=== PATIENT | male | born 1955 | race Caucasian/White ===

== ENCOUNTER 2020-04-24 20:13 | Inpatient (IN) | payer MEDICARE, OTHER ==
[~2020-04-24] VITALS: Ht 177.8 cm; Wt 72.3 kg
[2020-04-24] MEDS ORDERED: Z GUARD REMEDY PASTE 57 GM TUBE TOP PRN ×2 (20:30→23:45)
[2020-04-24 21:09] VITALS: BP 166/85
[2020-04-24] MEDS ORDERED: MULT-1077 PO (21:09)
[2020-04-24] MEDS ORDERED: DOCU-141 PO (21:09)
[2020-04-24] MEDS ORDERED: AMLO5TAB4 PO (21:09)
[2020-04-24] MEDS ORDERED: THIA100P12 PO (21:09)
[2020-04-24] MEDS ORDERED: SERT50TA PO (21:09)
[2020-04-24] MEDS ORDERED: ZINC1CAP2 PO (21:09)
[2020-04-24] MEDS ORDERED: ASCO-375 PO (21:09)
[2020-04-24] MEDS ORDERED: ASCO-310 PO (21:09)
[2020-04-24] MEDS ORDERED: ATOR40TA PO (21:09)
[2020-04-24] MEDS ORDERED: QUET100T PO (21:09)
[2020-04-24] MEDS ORDERED: ONDANSETRON 4 MG/2 ML VIAL IV PRN (23:45)
[2020-04-24] MEDS ORDERED: MAGNESIUM HYDROXIDE 30 ML LIQUID UDC PO PRN (23:45)
[2020-04-24] MEDS ORDERED: QUETIAPINE FUMARATE 25 MG TABLET PO PRN (23:45)
[2020-04-24] MEDS ORDERED: ASCORBIC ACID 500 MG TABLET PO SCH (23:45)
--- NOTE | 2020-04-24 23:45 | NUR ---
Admitted patient from [facility] under care of Dr. Hayden. Patient arrived @194 via gurney. AAO X 2-3 but very confused. Vital signs: BP:166/85, HR:75, RR:19, T:98.7 F, O2 SAT:99% RA. Condition fair. No acute distress or SOB was noted. Admitting diagnosis: Subdural hematoma S/P Fall. On room air. Contacted Dr. Hayden regarding medication reconciliation and it's done. MRSA done and sent to the lab. Physical assessment done. Skin assessed, a lot of skin abrasion in body noted, picture taken and put in the chart, some of the dressing changed. All admission works done. Safety measures maintained. Fall prevention maintained. Bed in lock position, Side rails up x2 for safety. Continue to monitor.
[2020-04-25] MEDS: LORAZEPAM 0.5 MG TABLET PO PRN (00:47)
--- NOTE | 2020-04-25 04:16 | NUR ---
Patient was very agitated, tried out of the bed all the times. Changed his room from 301 to 311 (in front of nursing station) for close monitoring. Ativan 0.5 mg tab administered with minimal effect. Setting bed alarm on and sitting next to the door for close monitoring. continue to monitor.
[2020-04-25 05:00] VITALS: BP 164/93
--- NOTE | 2020-04-25 05:49 | NUR ---
Patient had vomiting, it was projectile, no bloody. Patient was not nauseous before. And after vomiting he did feel better and not nauseous, mentioned "The taste of apple sauce made me vomit". Contacted [employer], received order of KUB, stat from Dr. Hayden. Will endorse to oncoming nurse.
[2020-04-25 06:52] LABS: BASOPHILS % (AUTO) 0.4 % (0.0-2.0); EOSINOPHILS % (AUTO) 0.2 % (0.0-7.0); HEMOGLOBIN 11.6 g/dL (12.5-16.3); LYMPHOCYTES # (AUTO) 0.6 K/uL (20.0-40.0); LYMPHOCYTES % (AUTO) 8.8 % (20.5-51.5); MEAN CORPUSCULAR HEMOGLOBIN 35.2 uug (23.8-33.4); MEAN CORPUSCULAR HGB CONC 35 g/dL (32.5-36.3); MEAN CORPUSCULAR VOLUME 99.7 fL (73.0-96.2); MONOCYTES # (AUTO) 1.1 K/uL (2.0-10.0); MONOCYTES % (AUTO) 16.8 % (0.0-11.0); NEUTROPHILS # (AUTO) 4.7 K/uL (1.8-8.9); NEUTROPHILS % (AUTO) 73.8 % (38.5-71.5); PLATELET COUNT (AUTO) 139 K/uL (152-348); RED BLOOD CELL COUNT(AUTO) 3.31 MIL/uL (4.06-5.63); WHITE BLOOD COUNT (AUTO) 6.4 K/uL (3.6-10.2)
[2020-04-25 07:09] LABS: CREATININE 0.7 mg/dL (0.6-1.3); MAGNESIUM 1.9 mg/dL (1.8-2.4); PHOSPHOROUS 2.8 mg/dL (2.5-4.9); POTASSIUM 2.9 mmol/L (3.5-5.1)
[2020-04-25 08:00] VITALS: BP 179/97
[2020-04-25] MEDS: MULTIVIT, IRON, MIN NO. 8, FA TABLET PO SCH (08:40)
[2020-04-25] MEDS: DOCUSATE SODIUM 100 MG CAPSULE PO SCH ×2 (08:40→17:20)
[2020-04-25] MEDS: THIAMINE HCL 100 MG TABLET PO SCH (08:41)
[2020-04-25] MEDS: ACETAMINOPHEN 325 MG TABLET PO PRN ×2 (08:43→15:40)
[2020-04-25] MEDS: SERTRALINE HCL 50 MG TABLET PO SCH (08:43)
[2020-04-25] MEDS: AMLODIPINE 5 MG TABLET PO SCH (08:43)
[2020-04-25] MEDS: ZINC SULFATE 220 MG CAPSULE PO SCH (08:44)
[2020-04-25] MEDS: QUETIAPINE FUMARATE 100 MG TABLET PO SCH ×2 (08:44→17:21)
[2020-04-25] MEDS ORDERED: ASCORBIC ACID 500 MG TABLET PO SCH ×3 (09:00→10:00)
[2020-04-25] MEDS: ASCORBIC ACID 500 MG TABLET PO SCH (11:47)
[2020-04-25] MEDS: POTASSIUM CHLORIDE 20 MEQ TAB.PRT.SR PO SCH ×3 (13:11→14:45)
--- NOTE | 2020-04-25 13:33 | NUR ---
Received patient awake in bed in stable condition. AOx2-3 with periods of confusion. Patient refuse breakfast and lunch despite of encouragement and education. MD notified. Patient potassium 2.9 replace potassium 20meq x3 tablets. Patient evaluated by therapy this day. Patient on fall risk precaution. Bed alarm on. no vomiting episode. Patient BP 179/97. Morning BP medication given. MD Walker aware. Latest BP-158/81. no complaint of pain/discomfort. not in distress. will continue monitor
[2020-04-25 16:00] VITALS: BP 154/85
--- NOTE | 2020-04-25 17:53 | NUR ---
Patient refuse to consume meals despite of encouragement. MD Walker notified.
[2020-04-25] MEDS ORDERED: IV D5W-0.45% NS 1000 ML BAG IV ONE (18:30)
--- NOTE | 2020-04-25 18:37 | NUR ---
Patient started IV D5 1/2 NS, 50cc/hr for hydration and loss of appetite as ordered by MD Walker. will continue monitor
[2020-04-25] MEDS ORDERED: IV D5 1/2 NS 1000 ML 1,000 ML IV ONE ×2 (18:45)
[2020-04-25 20:06] VITALS: BP 146/82
[2020-04-25] MEDS: ATORVASTATIN 40 MG TABLET PO SCH (20:47)
[2020-04-25 20:52] LABS: EOSINOPHILS % (MANUAL) 1 % (0-8); LYMPHOCYTES % (MANUAL) 9 % (20-40); MONOCYTES % (MANUAL) 11 % (2-10); NEUTROPHILS % (MANUAL) 79 % (42-75)
--- NOTE | 2020-04-25 22:00 | NUR ---
Received patient in bed, intermittently asleep. Alert and verbally responsive. Can make needs known. No complaints of pain noted. Received due medication, tolerated well. Will continue to observe fall and safety precautions. All needs attended.
[2020-04-25] MEDS: ZOLPIDEM 5 MG TABLET PO PRN (23:00)
[2020-04-26] MEDS: LORAZEPAM 0.5 MG TABLET PO PRN (00:58)
[2020-04-26 04:06] VITALS: BP 146/79
[2020-04-26] MEDS: HYDROCODONE/APAP 5-325MG TABLET PO PRN (04:20)
--- NOTE | 2020-04-26 06:48 | NUR ---
Patient is in bed, intermittently asleep. Patient had difficulty sleeping and restless since 0300 until 0430. Patient with ongoing IV hydration, midline at right upper arm patent and intact. Fall and safety precautions observed. Will endorse to AM shift accordingly. All needs attended.
[2020-04-26 08:00] VITALS: BP 174/85
[2020-04-26] MEDS: QUETIAPINE FUMARATE 100 MG TABLET PO SCH ×2 (09:17→17:08)
[2020-04-26] MEDS: DOCUSATE SODIUM 100 MG CAPSULE PO SCH ×2 (09:17→17:08)
[2020-04-26] MEDS: SERTRALINE HCL 50 MG TABLET PO SCH (09:18)
[2020-04-26] MEDS: ASCORBIC ACID 500 MG TABLET PO SCH (09:18)
[2020-04-26] MEDS: MULTIVIT, IRON, MIN NO. 8, FA TABLET PO SCH (09:18)
[2020-04-26] MEDS: THIAMINE HCL 100 MG TABLET PO SCH (09:19)
[2020-04-26] MEDS: ZINC SULFATE 220 MG CAPSULE PO SCH (09:19)
[2020-04-26] MEDS: AMLODIPINE 5 MG TABLET PO SCH (09:25)
[2020-04-26 09:55] LABS: CREATININE 0.7 mg/dL (0.6-1.3); POTASSIUM 3.3 mmol/L (3.5-5.1)
[2020-04-26 10:19] VITALS: BP 149/73
[2020-04-26] MEDS ORDERED: POTASSIUM CHLORIDE 20 MEQ TAB.PRT.SR PO ONE (11:15)
[2020-04-26 16:14] VITALS: BP 133/68
--- NOTE | 2020-04-26 18:32 | NUR ---
patient is alert, awake, ambulatory with assist, however noted with poor appetite, multiple bruises and abrasions noted on body, however they are healing at various stages, asked patient what happen, patient stated he was drunk and fell multiple times, no signs and symptoms of infection noted, patient has poor appetite, not eating much, convinced to eat and offered different choices of food, patient stated he does not feel hungry, continue to monitor, no distress noted, ambulatory with assist, assisted to the bathroom, OT assisted with personal hygiene. needs attended on time.
--- NOTE | 2020-04-26 19:30 | NUR ---
RECEIVED PT AWAKE, ALERT, ORIENTEDX3. PT IN NO ACUTE DISTRESS. PT HAD MULTIPLE SKIN ISSUES. SAFETY AND COMFORT PROVIDED. WILL CONTINUE TO MONITOR.
[2020-04-26] MEDS: ATORVASTATIN 40 MG TABLET PO SCH (20:38)
[2020-04-26 20:56] VITALS: BP 148/70
[2020-04-27 04:51] VITALS: BP 150/77
[2020-04-27] MEDS: HYDROCODONE/APAP 5-325MG TABLET PO PRN (06:09)
--- NOTE | 2020-04-27 06:32 | NUR ---
RECEIVED PT IN NO ACUTE DISTRESS. PRESCRIBED MEDICATION GIVEN AND PT TOLERATED IT WELL. NORCO GIVEN PRN FOR PAIN. PT TOLERATED IT WELL. ENDORSE TO INCOMING NURSE FOR CONTINUITY OF CARE.
[2020-04-27 06:49] VITALS: BP 146/98
[2020-04-27 06:52] LABS: CREATININE 0.8 mg/dL (0.6-1.3); MAGNESIUM 1.9 mg/dL (1.8-2.4); PHOSPHOROUS 3.1 mg/dL (2.5-4.9); POTASSIUM 3.1 mmol/L (3.5-5.1); URIC ACID 2.1 mg/dL (3.5-7.2)
[2020-04-27 07:00] LABS: THYROID STIMULATING HORMONE 2.392 mIU/mL (0.358-3.740)
[2020-04-27] MEDS ORDERED: POTASSIUM CHLORIDE 20 MEQ TAB.PRT.SR PO ONE (07:45)
[2020-04-27] MEDS: MULTIVIT, IRON, MIN NO. 8, FA TABLET PO SCH (09:02)
[2020-04-27] MEDS: AMLODIPINE 5 MG TABLET PO SCH (09:02)
[2020-04-27] MEDS: ASCORBIC ACID 500 MG TABLET PO SCH (09:02)
[2020-04-27] MEDS: SERTRALINE HCL 50 MG TABLET PO SCH (09:02)
[2020-04-27] MEDS: THIAMINE HCL 100 MG TABLET PO SCH (09:02)
[2020-04-27] MEDS: QUETIAPINE FUMARATE 100 MG TABLET PO SCH ×2 (09:02→17:04)
[2020-04-27] MEDS: DOCUSATE SODIUM 100 MG CAPSULE PO SCH ×2 (09:02→17:04)
[2020-04-27] MEDS: ACETAMINOPHEN 325 MG TABLET PO PRN (09:03)
[2020-04-27] MEDS: ZINC SULFATE 220 MG CAPSULE PO SCH (09:03)
[2020-04-27 09:10] VITALS: BP 154/84
[2020-04-27] MEDS: CLONIDINE-TTS 1 PATCH TD SCH (09:29)
--- NOTE | 2020-04-27 12:43 | NUR ---
Received patient awake in bed in stable condition. Patient continue therapy for increase strenght and ADL activities. Patient consumed 50% of meals during lunch time. Encourage increase fluid intake. not in distress. Patient seen and examined by MD Walker with ordered potassium 40 meq for potassium 3.1 low result. Patient compliant wit medication. Continue wound skin care provided. will continue monitor
--- NOTE | 2020-04-27 12:57 | NUR ---
INDIVIDUALIZED PLAN OF CARE
--- NOTE | 2020-04-27 13:37 | NUR ---
WOUND CARE CONSULT: PT PRESENTS WITH MULTIPLE AREAS OF DISCOLORATION AND DRY ABRASIONS, PRESENT ON ADMISSION. THERE ARE DISCOLORED AREAS TO TOES AND WOUND TO RT LATERAL ANKLE, PRESENT ON ADMISSION. RECOMMEND DPM CONSULT. DR VILLATORO NOTIFIED OF CONSULT REQUEST. RECOMMENDATIONS MADE FOR SKIN PROTECTION. DISCUSSED WITH NURSING STAFF. WILL SEE PRN. MCMAHON IN AGREEMENT WITH PLAN OF CARE. Addendum: 04/27/20 at 1339 by JEAN VAZQUEZ RN Amended: Links added.
--- NOTE | 2020-04-27 14:41 | NUR ---
Patient seen and examined by personal vehicle advisor with order, apply xeroform and cover with mepilex in right ankle abrasion. Patient seen and examined by wound care nurse with order continue skin care and refer to personal vehicle advisor for toes and foot abrasion. dry and healing well. will continue monitor
[2020-04-27 16:15] VITALS: BP 149/86
--- NOTE | 2020-04-27 17:15 | NUR ---
Patient seen and examined by MD Hernandez (neuro), ordered psychiatrist consult for ff up psych medications. Patient rare communicate with staff. Patient participate less in therapy noted despite of encouragement.
[2020-04-27 20:22] VITALS: BP 161/77
--- NOTE | 2020-04-27 21:30 | NUR ---
Received patient in bed, intermittently asleep. Alert and verbally responsive. Axox2-3, confused. Can make needs known. No complaints of pain noted. No s/s of distress and no SOB noted. Received due medication, tolerated well. Will continue to observe fall and safety precautions. All needs attended.
[2020-04-27] MEDS: ATORVASTATIN 40 MG TABLET PO SCH (21:36)
[2020-04-27] MEDS: MIRTAZAPINE 15 MG TABLET PO SCH (21:36)
--- NOTE | 2020-04-28 06:05 | NUR ---
Patient is in bed, intermittently asleep. Patient woke up multiple times throughout the night. Episodes of confusion noted, reoriented to time and place. no s/s of distress noted. All needs attended to through the night. Kept comfortable. Fall and safety precautions observed. Will endorse to AM shift accordingly, continue plan of care.
[2020-04-28 06:53] VITALS: BP 145/107
[2020-04-28] MEDS: LORAZEPAM 0.5 MG TABLET PO PRN ×2 (07:45→18:26)
[2020-04-28 08:00] VITALS: BP 106/76
[2020-04-28] MEDS: MULTIVIT, IRON, MIN NO. 8, FA TABLET PO SCH (08:03)
[2020-04-28] MEDS: THIAMINE HCL 100 MG TABLET PO SCH (08:03)
[2020-04-28] MEDS: ASCORBIC ACID 500 MG TABLET PO SCH (08:03)
[2020-04-28] MEDS: AMLODIPINE 5 MG TABLET PO SCH (08:03)
[2020-04-28] MEDS: ZINC SULFATE 220 MG CAPSULE PO SCH (08:03)
[2020-04-28] MEDS: DOCUSATE SODIUM 100 MG CAPSULE PO SCH ×2 (08:04→16:43)
[2020-04-28] MEDS: QUETIAPINE FUMARATE 100 MG TABLET PO SCH ×2 (08:04→16:43)
[2020-04-28] MEDS: SERTRALINE HCL 50 MG TABLET PO SCH (08:04)
--- NOTE | 2020-04-28 09:38 | NUR ---
Received patient awake in bed. Patient confuse and anxious noted. Bowel movement on the floor noted. Bed alarm on, Patient keep on standing going back and fort from bed to bathroom. Patient verbalize, "we already have 5 families in the house" Reorient the patient that he is in the hospital. 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 Patient reorient but still anxious and murmur words at times. Patient complaint of difficulty breathing, not in distress noted. SA02- 100%. Patient Ativan 0.5mg PO PRN given for anxiety. Patient for FF UP psych consult. will continue monitor
--- NOTE | 2020-04-28 11:16 | NUR ---
Patient seen and examined by MD Hernandez. ordered EEG for subdural hematoma. Patient for FF UP psych consult. MD Romo notified this morning. Patient continue behavioral monitoring. Patient participated with therapy, walk with therapy noted. tolerated well. need assistance in ambulation for unsteady gait. will continue monitor
[2020-04-28 15:38] LABS: BASOPHILS % (AUTO) 0.2 % (0.0-2.0); HEMATOCRIT 37.3 % (36.7-47.1); HEMOGLOBIN 13.1 g/dL (12.5-16.3); LYMPHOCYTES # (AUTO) 0.6 K/uL (20.0-40.0); LYMPHOCYTES % (AUTO) 6.4 % (20.5-51.5); MEAN CORPUSCULAR HEMOGLOBIN 34.6 uug (23.8-33.4); MEAN CORPUSCULAR HGB CONC 35 g/dL (32.5-36.3); MEAN CORPUSCULAR VOLUME 98.5 fL (73.0-96.2); MONOCYTES # (AUTO) 2.5 K/uL (2.0-10.0); MONOCYTES % (AUTO) 25.4 % (0.0-11.0); NEUTROPHILS # (AUTO) 6.7 K/uL (1.8-8.9); PLATELET COUNT (AUTO) 235 K/uL (152-348); RED BLOOD CELL COUNT(AUTO) 3.78 MIL/uL (4.06-5.63); WHITE BLOOD COUNT (AUTO) 9.8 K/uL (3.6-10.2)
[2020-04-28 15:44] LABS: BILIRUBIN,TOTAL 3.9 mg/dL (0.2-1.0); CREATININE 1.1 mg/dL (0.6-1.3); MAGNESIUM 1.8 mg/dL (1.8-2.4); PHOSPHOROUS 2.9 mg/dL (2.5-4.9); TOTAL PROTEIN, SERUM 7.8 g/dL (6.4-8.2)
[2020-04-28 15:46] LABS: POTASSIUM 2.8 mmol/L (3.5-5.1)
[2020-04-28 15:51] VITALS: BP 142/80
[2020-04-28] MEDS: ENSURE ENLIVE (VAN) 240 ML LIQUID PO SCH (16:44)
--- NOTE | 2020-04-28 18:03 | NUR ---
Patient done with EEG, awaiting for result. Patient potassium 2.8 low result relayed to MD Walker, ordered Potassium 20meq PO every 2 hours x 3 tabs total of 60meq. not in distress. will continue monitor
[2020-04-28] MEDS: POTASSIUM CHLORIDE 20 MEQ TAB.PRT.SR PO SCH ×3 (18:12→22:23)
[2020-04-28 18:51] LABS: EOSINOPHILS % (MANUAL) 1 % (0-8); MONOCYTES % (MANUAL) 16 % (2-10); NEUTROPHILS % (MANUAL) 68 % (42-75)
[2020-04-28 18:52] LABS: BAND % (MANUAL) 5 % (0-10); LYMPHOCYTES % (MANUAL) 10 % (20-40)
[2020-04-28 20:00] VITALS: BP 141/69
[2020-04-28] MEDS: ATORVASTATIN 40 MG TABLET PO SCH (20:04)
[2020-04-28] MEDS: MIRTAZAPINE 15 MG TABLET PO SCH (20:04)
--- NOTE | 2020-04-28 21:00 | NUR ---
Patient is in bed, intermittently asleep. Episodes of confusion noted, reoriented to place, delay in responses noted. no s/s of distress noted. All needs attended to promptly. All due medication administered and tolerated well. Potassium 20meq PO given. not in distress. Will continue to monitor. Kept comfortable. Fall and safety precautions observed.
[2020-04-29] MEDS: ZOLPIDEM 5 MG TABLET PO PRN (01:50)
[2020-04-29 04:00] VITALS: BP 157/83
--- NOTE | 2020-04-29 06:21 | NUR ---
Patient verbalized having difficult falling asleep, administered Ambien per patient request. Insomnia was not corrected. Patient got up multiple times throughout the night. Patient is very confused need constant reorientation. Falls commands after multiple repetition attempts. no s/s of distress noted. All needs attended to through the night. Kept comfortable. Fall and safety precautions observed. Will endorse to AM shift accordingly, continue plan of care.
[2020-04-29 06:46] LABS: BILIRUBIN,TOTAL 3.1 mg/dL (0.2-1.0); CREATININE 0.9 mg/dL (0.6-1.3); MAGNESIUM 1.9 mg/dL (1.8-2.4); PHOSPHOROUS 3.2 mg/dL (2.5-4.9); POTASSIUM 3.2 mmol/L (3.5-5.1)
[2020-04-29 07:34] LABS: BASOPHILS % (AUTO) 0.2 % (0.0-2.0); EOSINOPHILS % (AUTO) 0.1 % (0.0-7.0); HEMATOCRIT 36.3 % (36.7-47.1); HEMOGLOBIN 12.8 g/dL (12.5-16.3); LYMPHOCYTES # (AUTO) 0.7 K/uL (20.0-40.0); LYMPHOCYTES % (AUTO) 6.4 % (20.5-51.5); MEAN CORPUSCULAR HEMOGLOBIN 34.6 uug (23.8-33.4); MEAN CORPUSCULAR HGB CONC 35 g/dL (32.5-36.3); MEAN CORPUSCULAR VOLUME 97.8 fL (73.0-96.2); MONOCYTES # (AUTO) 2.4 K/uL (2.0-10.0); MONOCYTES % (AUTO) 20.6 % (0.0-11.0); NEUTROPHILS # (AUTO) 8.3 K/uL (1.8-8.9); NEUTROPHILS % (AUTO) 72.7 % (38.5-71.5); PLATELET COUNT (AUTO) 150 K/uL (152-348); RED BLOOD CELL COUNT(AUTO) 3.71 MIL/uL (4.06-5.63); WHITE BLOOD COUNT (AUTO) 11.4 K/uL (3.6-10.2)
[2020-04-29 08:13] LABS: THYROID STIMULATING HORMONE 1.555 mIU/mL (0.358-3.740)
[2020-04-29 08:38] VITALS: BP 158/80
[2020-04-29] MEDS: ZINC SULFATE 220 MG CAPSULE PO SCH (09:22)
[2020-04-29] MEDS: SERTRALINE HCL 50 MG TABLET PO SCH (09:23)
[2020-04-29] MEDS: DOCUSATE SODIUM 100 MG CAPSULE PO SCH ×2 (09:23→18:34)
[2020-04-29] MEDS: AMLODIPINE 5 MG TABLET PO SCH (09:23)
[2020-04-29] MEDS: ASCORBIC ACID 500 MG TABLET PO SCH (09:24)
[2020-04-29] MEDS: THIAMINE HCL 100 MG TABLET PO SCH (09:24)
[2020-04-29] MEDS: ENSURE ENLIVE (VAN) 240 ML LIQUID PO SCH ×3 (09:24→18:34)
[2020-04-29] MEDS: MULTIVIT, IRON, MIN NO. 8, FA TABLET PO SCH (09:24)
[2020-04-29] MEDS: QUETIAPINE FUMARATE 100 MG TABLET PO SCH ×2 (09:25→18:34)
[2020-04-29] MEDS ORDERED: POTASSIUM CHLORIDE 20 MEQ TAB.PRT.SR PO ONE (12:00)
[2020-04-29 13:00] LABS: NEUTROPHILS % (MANUAL) 73 % (42-75)
[2020-04-29 13:01] LABS: REACTIVE LYMPHOCYTES 10 % (0-0)
[2020-04-29 13:02] LABS: LYMPHOCYTES % (MANUAL) 6 % (20-40); MONOCYTES % (MANUAL) 11 % (2-10)
--- NOTE | 2020-04-29 16:16 | NUR ---
MD OCONNELL NOTIFIED FOR PSYCH CONSULT D/T ALTERED MENTAL STATUS REQUESTED BY MD RAMIREZ
--- NOTE | 2020-04-29 16:17 | NUR ---
MOTEL OPERATOR IN RECOMMENDS ATB THERAPY FOR LEFT ANKLE SWELLING AND REDNESS. NOTIFIED PMD OF HER SUGGESTIONS
[2020-04-29 16:47] VITALS: BP 155/78
--- NOTE | 2020-04-29 19:50 | NUR ---
Sleeping during initial rounds. No s/s of pain or discomforts noted. No s/s of respiratory distress. Safety measures and fall prevention maintained. Continue care as planned.
[2020-04-29 20:01] VITALS: BP 134/56
[2020-04-29] MEDS: ATORVASTATIN 40 MG TABLET PO SCH (21:00)
[2020-04-29] MEDS: MIRTAZAPINE 15 MG TABLET PO SCH (21:01)
[2020-04-30 04:46] VITALS: BP 141/75
--- NOTE | 2020-04-30 06:27 | NUR ---
Shift End report: Slept well. No complaint presented all night. No fall/injury. All needs attended and met. No significant event reported. VS stable. Continue current rehab plan of care.
[2020-04-30 06:42] LABS: CREATININE 0.8 mg/dL (0.6-1.3); PHOSPHOROUS 3.1 mg/dL (2.5-4.9); POTASSIUM 3.1 mmol/L (3.5-5.1); URIC ACID 2.7 mg/dL (3.5-7.2)
[2020-04-30 07:30] VITALS: BP 158/66
[2020-04-30] MEDS: ASCORBIC ACID 500 MG TABLET PO SCH (09:15)
[2020-04-30] MEDS: THIAMINE HCL 100 MG TABLET PO SCH (09:15)
[2020-04-30] MEDS: AMLODIPINE 5 MG TABLET PO SCH (09:15)
[2020-04-30] MEDS: QUETIAPINE FUMARATE 100 MG TABLET PO SCH ×2 (09:15→16:44)
[2020-04-30] MEDS: ZINC SULFATE 220 MG CAPSULE PO SCH (09:15)
[2020-04-30] MEDS: MULTIVIT, IRON, MIN NO. 8, FA TABLET PO SCH (09:15)
[2020-04-30] MEDS: SERTRALINE HCL 50 MG TABLET PO SCH (09:16)
[2020-04-30] MEDS: ENSURE ENLIVE (VAN) 240 ML LIQUID PO SCH ×3 (09:17→17:30)
[2020-04-30] MEDS: DOCUSATE SODIUM 100 MG/10 ML LIQUID UDC PO SCH ×2 (09:34→16:44)
[2020-04-30] MEDS ORDERED: POTASSIUM CHLORIDE 20 MEQ TAB.PRT.SR PO ONE (15:45)
[2020-04-30] MEDS ORDERED: POTASSIUM CHLORIDE 20 MEQ POWDER PACKET PO ONE (16:30)
--- NOTE | 2020-04-30 18:00 | NUR ---
Patient awake, oriented to self, confused, not in any form of distress, on room air. Due medications administered and tolerated well. Needs attended to promptly and met. Assisted patient with feeding. Call light and frequently used items placed within patient's reach. Safety measures maintained. Will endorse accordingly.
--- NOTE | 2020-04-30 19:45 | NUR ---
Awake, alert, non verbal at this time but follows simple command. No s/s of respiratory distress. No s/s of pain/discomforts noted. Safety measures and fall prevention maintained. Continue care as planned.
[2020-04-30 20:12] VITALS: BP 117/65
[2020-04-30] MEDS: MIRTAZAPINE 15 MG TABLET PO SCH (20:38)
[2020-04-30] MEDS: ATORVASTATIN 40 MG TABLET PO SCH (20:38)
--- NOTE | 2020-04-30 22:00 | NUR ---
Dr. Romo here, informed him about the consult, he said he'll see tomorrow. Charge Nurse aware.
[2020-05-01 04:00] VITALS: BP 131/65
--- NOTE | 2020-05-01 05:34 | NUR ---
Shift End Report: Slept well. No significant event reported all night. VS stable. Continue current rehab plan of care.
[2020-05-01 08:16] VITALS: BP 124/66
[2020-05-01] MEDS: SERTRALINE HCL 50 MG TABLET PO SCH (09:11)
[2020-05-01] MEDS: QUETIAPINE FUMARATE 100 MG TABLET PO SCH ×3 (09:11→17:20)
[2020-05-01] MEDS: THIAMINE HCL 100 MG TABLET PO SCH (09:11)
[2020-05-01] MEDS: ASCORBIC ACID 500 MG TABLET PO SCH (09:12)
[2020-05-01] MEDS: MULTIVIT, IRON, MIN NO. 8, FA TABLET PO SCH (09:12)
[2020-05-01] MEDS: ZINC SULFATE 220 MG CAPSULE PO SCH (09:12)
[2020-05-01] MEDS: DOCUSATE SODIUM 100 MG/10 ML LIQUID UDC PO SCH ×2 (09:12→17:20)
[2020-05-01] MEDS: ENSURE ENLIVE (VAN) 240 ML LIQUID PO SCH ×3 (09:13→17:21)
[2020-05-01] MEDS: AMLODIPINE 5 MG TABLET PO SCH (09:13)
[2020-05-01] MEDS: SULFAMETH/TRIMETH 800/160 MG TABLET PO SCH ×2 (09:35→21:09)
--- NOTE | 2020-05-01 11:02 | NUR ---
STARTED ON ATB FOR RIGHT ANKLE WOUND, WOUND BED IS YELLOW, PERIWOUND IS RED IN COLOR, NO ODOR NOTED, NO DRAINAGE NOTED, MULTIPLE ABRASIONS ON THE OTHER PART OF THE BODY ARE AT DIFFERENT STAGES OF HEALING. CONTINUE TO MONITOR
--- NOTE | 2020-05-01 15:26 | NUR ---
patient is alert, sleepy most of the time, no distress noted, able to participate with PT, OT, tolerated well, still noted with poor appetite, encouraged to drink ensure, patient drank ensure with meals, offered snacks, stated on new medication, will monitor for effectiveness, needs attended timely.
[2020-05-01 15:34] VITALS: BP 111/59
--- NOTE | 2020-05-01 16:01 | NUR ---
INTERDISCIPLINARY TEAM CONFERENCE
--- NOTE | 2020-05-01 17:10 | NUR ---
Jorgensen catheter discontinued, urine turns from yellow in the morning, now dark color with clots, dr son is aware.
--- NOTE | 2020-05-01 17:14 | NUR ---
clarification: noted yellow color urine draining in the [place] in the morning, later in the day noted with clots and dark color, vitals are good, patient stated he feels cold, and shaky, however rectal temp is 98.4, dr son aware, continue to monitor, no new orders at this time. encouraged patient to drink more water as tolerated.
--- NOTE | 2020-05-01 19:45 | NUR ---
Received patient in bed, awake, alert, requesting assistance to the bathroom. 2 person assist to get him out the bed. Ambulated to the BR with FWW with standby assist. No fall/injury. Voided good. Assisted back to bed. Able to turn and repositioned self slowly in bed. Safety measure and fall prevention maintained. Continue care as planned.
[2020-05-01 20:24] VITALS: BP 125/62
[2020-05-01] MEDS: ATORVASTATIN 40 MG TABLET PO SCH (21:09)
[2020-05-01] MEDS: MIRTAZAPINE 15 MG TABLET PO SCH (21:09)
[2020-05-02 05:27] VITALS: BP 110/71
--- NOTE | 2020-05-02 06:49 | NUR ---
Shift End Report: Slept good. No complaint presented all night. All needs attended and met. No fall/injury. No significant event reported. Continue current rehab plan of care.
[2020-05-02 07:30] VITALS: BP 144/60
[2020-05-02] MEDS: QUETIAPINE FUMARATE 100 MG TABLET PO SCH ×2 (09:03→17:25)
[2020-05-02] MEDS: THIAMINE HCL 100 MG TABLET PO SCH (09:03)
[2020-05-02] MEDS: SERTRALINE HCL 50 MG TABLET PO SCH (09:03)
[2020-05-02] MEDS: MULTIVIT, IRON, MIN NO. 8, FA TABLET PO SCH (09:03)
[2020-05-02] MEDS: AMLODIPINE 5 MG TABLET PO SCH (09:03)
[2020-05-02] MEDS: ASCORBIC ACID 500 MG TABLET PO SCH (09:04)
[2020-05-02] MEDS: DOCUSATE SODIUM 100 MG/10 ML LIQUID UDC PO SCH ×2 (09:04→17:25)
[2020-05-02] MEDS: ZINC SULFATE 220 MG CAPSULE PO SCH (09:04)
[2020-05-02] MEDS: MODAFINIL 100 MG TABLET PO SCH (09:04)
[2020-05-02] MEDS: SULFAMETH/TRIMETH 800/160 MG TABLET PO SCH ×2 (09:04→20:59)
[2020-05-02] MEDS: ENSURE ENLIVE (VAN) 240 ML LIQUID PO SCH ×3 (09:05→17:25)
--- NOTE | 2020-05-02 09:30 | NUR ---
Patient noted with swelling and tenderness on right upper arm where midline is placed. Patient also stated having pain and tenderness when moving. RN cryptologic supervisor informed. Midline on right upper arm removed, no bleeding noted; site covered with gauze and secured. will continue with care.
--- NOTE | 2020-05-02 11:28 | NUR ---
Patient received in bed sleeping, easy to arouse. Patient is AAO X 2-3. NO acute distress noted. Vital signs stable. Due medications administered, crushed with apple sauce and tolerated well. Patient on ATB therapy of Bactrim DS PO q 12hr. Pt. on continuos PT/OT therapy. Denies pain at this time. Able to ambulate with a walker and one person assist. Patient was given shower with PT. All other needs attended, safety measures in place and will continue with care. Addendum: 05/02/20 at 1223 by EMANUEL HARRINGTON RN RN Patient AAO x 2.
--- NOTE | 2020-05-02 14:43 | NUR ---
Right ankle cleansed and changed dressing as ordered.
[2020-05-02 16:00] VITALS: BP 130/72
--- NOTE | 2020-05-02 18:16 | NUR ---
Patient AAO x 2 with episodes of forgetfulness noted, needs reorientation at times. No acute distress. All due medications administered as ordered and scheduled and tolerated well. Patient was up with PT/OT. All other needs attended, safety measures in place, call light left at bed side and will continue with care.
--- NOTE | 2020-05-02 18:48 | NUR ---
Right upper arm dressing intact and dry. Swelling subsided will continue with care.
[2020-05-02 20:02] VITALS: BP 115/64
[2020-05-02] MEDS: ATORVASTATIN 40 MG TABLET PO SCH (20:59)
[2020-05-02] MEDS: MIRTAZAPINE 15 MG TABLET PO SCH (20:59)
--- NOTE | 2020-05-02 21:44 | NUR ---
Resting in bed upon initial rounds. AAOx 2-3 with some periods of forgetfulness at times. Needs attended. Admitted for subdural hematoma secondary to fall. Took meds without difficulty, crushed and mixed with apple sauce. Tolerated well. No nausea or vomiting noted. Kept comfortable. OOB to the BR with walker under supervision. Fluid restriction maintained. Will monitor patient.VSS.
[2020-05-03 06:17] LABS: CREATININE 0.8 mg/dL (0.6-1.3); MAGNESIUM 1.9 mg/dL (1.8-2.4); PHOSPHOROUS 3.5 mg/dL (2.5-4.9); POTASSIUM 3.4 mmol/L (3.5-5.1); URIC ACID 2.4 mg/dL (3.5-7.2)
[2020-05-03 06:29] VITALS: BP 121/60
--- NOTE | 2020-05-03 06:38 | NUR ---
End of shift notes: Slept well throughout the night. OOB to the BR with supervision. Voiding freely. Needs attended. No complaints presented during the shift. Will monitor patient.
[2020-05-03] MEDS: ZINC SULFATE 220 MG CAPSULE PO SCH (09:00)
[2020-05-03] MEDS: SERTRALINE HCL 50 MG TABLET PO SCH (10:03)
[2020-05-03] MEDS: ASCORBIC ACID 500 MG TABLET PO SCH (10:03)
[2020-05-03] MEDS: QUETIAPINE FUMARATE 100 MG TABLET PO SCH ×3 (10:03→18:20)
[2020-05-03] MEDS: THIAMINE HCL 100 MG TABLET PO SCH (10:04)
[2020-05-03] MEDS: MODAFINIL 100 MG TABLET PO SCH (10:04)
[2020-05-03] MEDS: MULTIVIT, IRON, MIN NO. 8, FA TABLET PO SCH (10:04)
[2020-05-03] MEDS: SULFAMETH/TRIMETH 800/160 MG TABLET PO SCH ×2 (10:04→21:14)
[2020-05-03] MEDS: AMLODIPINE 5 MG TABLET PO SCH (10:04)
[2020-05-03] MEDS: DOCUSATE SODIUM 100 MG/10 ML LIQUID UDC PO SCH ×2 (10:05→18:20)
[2020-05-03] MEDS: ENSURE ENLIVE (VAN) 240 ML LIQUID PO SCH ×3 (10:05→17:00)
[2020-05-03] MEDS ORDERED: POTASSIUM CHLORIDE 20 MEQ TAB.PRT.SR PO ONE (12:00)
[2020-05-03 19:45] VITALS: BP 123/70
[2020-05-03] MEDS: MIRTAZAPINE 15 MG TABLET PO SCH (21:14)
[2020-05-03] MEDS: ATORVASTATIN 40 MG TABLET PO SCH (21:14)
[2020-05-03] MEDS: HYDROCODONE/APAP 5-325MG TABLET PO PRN (23:34)
--- NOTE | 2020-05-04 03:04 | NUR ---
Received patient in bed, AAO x2 with episodes of confusion. No acute distress or SOB was noted. On room air. All due medications administered and well tolerated. Fluid restriction applied. reconciliation and it's done. Bladder scan done after voiding showing 42 ml. Diaper changed and kept patient clean and dry. Physical assessment done. Skin care rendered. All needs attended promptly. Safety measures maintained. Fall prevention maintained. Bed in lock position, Side rails up x2 for safety. Continue to monitor and will endorse to oncoming nurse accordingly.
[2020-05-04 05:24] VITALS: BP 142/76
[2020-05-04] MEDS: CLONIDINE-TTS 1 PATCH TD SCH (08:15)
[2020-05-04] MEDS: AMLODIPINE 5 MG TABLET PO SCH (08:24)
[2020-05-04] MEDS: MODAFINIL 100 MG TABLET PO SCH (08:25)
[2020-05-04] MEDS: SULFAMETH/TRIMETH 800/160 MG TABLET PO SCH ×2 (08:25→20:29)
[2020-05-04] MEDS: THIAMINE HCL 100 MG TABLET PO SCH (08:25)
[2020-05-04] MEDS: MULTIVIT, IRON, MIN NO. 8, FA TABLET PO SCH (08:25)
[2020-05-04] MEDS: ZINC SULFATE 220 MG CAPSULE PO SCH (08:25)
[2020-05-04] MEDS: SERTRALINE HCL 50 MG TABLET PO SCH (08:26)
[2020-05-04] MEDS: QUETIAPINE FUMARATE 100 MG TABLET PO SCH ×2 (08:26→16:35)
[2020-05-04] MEDS: ASCORBIC ACID 500 MG TABLET PO SCH (08:26)
[2020-05-04] MEDS: ENSURE ENLIVE (VAN) 240 ML LIQUID PO SCH ×3 (08:27→16:36)
[2020-05-04] MEDS: DOCUSATE SODIUM 100 MG/10 ML LIQUID UDC PO SCH ×2 (08:29→16:35)
[2020-05-04 10:39] VITALS: BP 97/63
--- NOTE | 2020-05-04 11:16 | NUR ---
Received patient awake in bed in stable condition. Patient continue therapy for increase strenght and therapeutic exercises. tolerated well. Done with shower in therapy gym. no complaint of pain/discomfort. will continue monitor
[2020-05-04 16:28] VITALS: BP 110/62
[2020-05-04] MEDS: HYDROCODONE/APAP 5-325MG TABLET PO PRN (18:14)
--- NOTE | 2020-05-04 18:34 | NUR ---
Patient continue on bladder scan, urine output monitoring with 93ml post void. Pain management given, Hydrocodone 5-325mg for back pain. not in distress. will continue monitor
--- NOTE | 2020-05-04 18:38 | NUR ---
Patient 700ml fluid intake. tolerated well.
[2020-05-04] MEDS: ATORVASTATIN 40 MG TABLET PO SCH (20:29)
[2020-05-04] MEDS: MIRTAZAPINE 15 MG TABLET PO SCH (20:29)
[2020-05-04 20:44] VITALS: BP 128/67
--- NOTE | 2020-05-04 20:47 | NUR ---
Received pt resting in bed and watching tv. AAO x3. No acute distress noted. Denies pain/ discomfort. Due meds given as ordered, given one at a time, tolerated well. On 1,000 mL/ day fluid restriction, monitored well. Pt on monitoring for bladder scan after voiding. Post void 6 mL. Safety measures maintained. Call light and personal items within reach. Will continue to monitor.
--- NOTE | 2020-05-05 00:26 | NUR ---
Post void 10mL. Continue to monitor.
[2020-05-05 04:42] VITALS: BP 112/63
--- NOTE | 2020-05-05 05:22 | NUR ---
Bladder scan done, post void 18mL. Continue to monitor.
[2020-05-05 07:30] VITALS: BP 142/73
[2020-05-05] MEDS: SERTRALINE HCL 50 MG TABLET PO SCH (08:13)
[2020-05-05] MEDS: ASCORBIC ACID 500 MG TABLET PO SCH (08:14)
[2020-05-05] MEDS: THIAMINE HCL 100 MG TABLET PO SCH (08:14)
[2020-05-05] MEDS: MULTIVIT, IRON, MIN NO. 8, FA TABLET PO SCH (08:14)
[2020-05-05] MEDS: MODAFINIL 100 MG TABLET PO SCH (08:14)
[2020-05-05] MEDS: SULFAMETH/TRIMETH 800/160 MG TABLET PO SCH ×2 (08:14→20:25)
[2020-05-05] MEDS: ZINC SULFATE 220 MG CAPSULE PO SCH (08:14)
[2020-05-05] MEDS: QUETIAPINE FUMARATE 100 MG TABLET PO SCH ×2 (08:14→16:06)
[2020-05-05] MEDS: ENSURE ENLIVE (VAN) 240 ML LIQUID PO SCH ×3 (08:15→16:06)
[2020-05-05] MEDS: DOCUSATE SODIUM 100 MG/10 ML LIQUID UDC PO SCH ×2 (08:15→16:05)
[2020-05-05] MEDS: AMLODIPINE 5 MG TABLET PO SCH (08:59)
[2020-05-05 16:00] VITALS: BP 129/71
--- NOTE | 2020-05-05 16:15 | NUR ---
bladder scan 105ml
--- NOTE | 2020-05-05 18:12 | NUR ---
dr murillo made aware about psych consult
[2020-05-05] MEDS: LORAZEPAM 0.5 MG TABLET PO PRN (18:59)
--- NOTE | 2020-05-05 19:06 | NUR ---
patient stated he wants to go to store and buy alcohol, reinforced hospital policies, redirected patient, endorsed accordingly to monitor patient closely for safety.
--- NOTE | 2020-05-05 19:23 | NUR ---
Awake, sitting at the edge of the bed. Denies any pain/discomforts. Voided per urinal, clear yellow in moderate amount. Assisted back to bed. Made comfortable. Safety measures and fall prevention maintained. Continue care as planned.
[2020-05-05 20:17] VITALS: BP_SYST 121; BP_SYST 128; BP_DIAS 62; BP_DIAS 73
[2020-05-05] MEDS: ATORVASTATIN 40 MG TABLET PO SCH (20:25)
[2020-05-05] MEDS: MIRTAZAPINE 15 MG TABLET PO SCH (20:25)
--- NOTE | 2020-05-05 21:10 | NUR ---
Voided per urinal 300 ml. No bladder distention noted. Bladder scan performed 21ml noted post void.
--- NOTE | 2020-05-05 21:12 | NUR ---
Patient was seen by Dr. Romo today, wants to order Crisis Team Eval. Dr Hayden made aware and agreeable with the plan. Charge Nurse called Crisis team and will see patient in AM.
--- NOTE | 2020-05-05 22:10 | NUR ---
Got up and attempted to go to the bathroom. Offered urinal for use, voided 400 cc clear denise urine in color. No bladder scan performed. No s/s of bladder retention/distention/discomforts presented at this time. Will monitor.
[2020-05-06 05:07] VITALS: BP 134/74
--- NOTE | 2020-05-06 06:45 | NUR ---
Shift End Report: VS stable. Slept well. No fall/injury. No complaint presented all night. All needs attended and met. No significant event reported. Continue current rehab plan of care.
[2020-05-06 06:59] LABS: BASOPHILS # (AUTO) 0.1 K/uL (0.0-8.0); EOSINOPHILS # (AUTO) 0.1 K/uL (0.0-0.7); HEMOGLOBIN 12.4 g/dL (12.5-16.3); MONOCYTES # (AUTO) 1.3 K/uL (2.0-10.0)
[2020-05-06 07:14] LABS: EOSINOPHILS % (AUTO) 1.1 % (0.0-7.0); HEMATOCRIT 36.4 % (36.7-47.1); LYMPHOCYTES # (AUTO) 1.4 K/uL (20.0-40.0); LYMPHOCYTES % (AUTO) 14.1 % (20.5-51.5); MEAN CORPUSCULAR HEMOGLOBIN 33.5 uug (23.8-33.4); MEAN CORPUSCULAR HGB CONC 34 g/dL (32.5-36.3); MEAN CORPUSCULAR VOLUME 98.1 fL (73.0-96.2); MONOCYTES % (AUTO) 13.7 % (0.0-11.0); NEUTROPHILS # (AUTO) 6.8 K/uL (1.8-8.9); NEUTROPHILS % (AUTO) 70.1 % (38.5-71.5); PLATELET COUNT (AUTO) 513 K/uL (152-348); RED BLOOD CELL COUNT(AUTO) 3.71 MIL/uL (4.06-5.63); WHITE BLOOD COUNT (AUTO) 9.7 K/uL (3.6-10.2)
[2020-05-06 07:17] LABS: CREATININE 0.8 mg/dL (0.6-1.3); POTASSIUM 3.9 mmol/L (3.5-5.1)
[2020-05-06 07:35] VITALS: BP 124/71
[2020-05-06] MEDS: ASCORBIC ACID 500 MG TABLET PO SCH (09:00)
[2020-05-06] MEDS: MULTIVIT, IRON, MIN NO. 8, FA TABLET PO SCH (09:00)
[2020-05-06] MEDS: THIAMINE HCL 100 MG TABLET PO SCH (09:01)
[2020-05-06] MEDS: MODAFINIL 100 MG TABLET PO SCH (09:01)
[2020-05-06] MEDS: SERTRALINE HCL 50 MG TABLET PO SCH (09:01)
[2020-05-06] MEDS: SULFAMETH/TRIMETH 800/160 MG TABLET PO SCH (09:01)
[2020-05-06] MEDS: ZINC SULFATE 220 MG CAPSULE PO SCH (09:01)
[2020-05-06] MEDS: DOCUSATE SODIUM 100 MG/10 ML LIQUID UDC PO SCH ×2 (09:02→16:36)
[2020-05-06] MEDS: AMLODIPINE 5 MG TABLET PO SCH (09:02)
[2020-05-06] MEDS: ENSURE ENLIVE (VAN) 240 ML LIQUID PO SCH ×3 (09:03→16:36)
[2020-05-06] MEDS: QUETIAPINE FUMARATE 100 MG TABLET PO SCH ×2 (09:03→16:36)
--- NOTE | 2020-05-06 10:45 | NUR ---
noted with limited and painful ROM to left shoulder, xray ordered.
--- NOTE | 2020-05-06 14:00 | NUR ---
patient voided in the bathroom, no post voiding residual noted upon scanning.
[2020-05-06 14:55] VITALS: BP 126/65
--- NOTE | 2020-05-06 15:40 | NUR ---
patient is alert, awake,oriented x2, with episodes of confusion and forgetful, however no acute distress noted, ambulatory with fww with one person assist, one person assist with adls, multiple abrasions healing at different stages, no signs and symptoms of infections noted, patient denied hallucinations, denied any suicidal thoughts or ideations, being discharged to [facility], report given to Misbah VEGA, warp picker time 1700 by [facility], belongings accounted and signed, medication recon attached to paperwork, instructions given to patient as well, verbalized understanding of some of it. still with poor appetite, no combative, no aggressive behaviour noted. seeks for alcohol, however easily redirected. kept clean and dry, needs attended timely.
[2020-05-06 18:16] LABS: NEUTROPHILS % (MANUAL) 69 % (42-75)
[2020-05-06 18:17] LABS: BAND % (MANUAL) 1 % (0-10); BASOPHILS % (MANUAL) 0 % (0-2); EOSINOPHILS % (MANUAL) 1 % (0-8); LYMPHOCYTES % (MANUAL) 16 % (20-40); MONOCYTES % (MANUAL) 13 % (2-10)
--- NOTE | 2020-05-06 19:00 | NUR ---
Patient discharged with [facility]. ID band removed
== END 2020-05-06 19:00 | DRG 949 ==
PROVIDERS: ADMIT Physical Medicine & Rehabilitation Pain Medicine; ATTEND Physical Medicine & Rehabilitation Pain Medicine
DX: S06.5X9D Traumatic subdural hemorrhage with loss of consciousness of unspecified duration, subsequent encounter (principal); N17.9 Acute kidney failure, unspecified; F32.3 Major depressive disorder, single episode, severe with psychotic features; E87.1 Hypo-osmolality and hyponatremia; M62.82 Rhabdomyolysis; G93.40 Encephalopathy, unspecified; L03.115 Cellulitis of right lower limb; R29.6 Repeated falls; S02.2XXD Fracture of nasal bones, subsequent encounter for fracture with routine healing; S90.511D Abrasion, right ankle, subsequent encounter; W19.XXXD Unspecified fall, subsequent encounter; D64.9 Anemia, unspecified; I10 Essential (primary) hypertension; R88.8 Abnormal findings in other body fluids and substances; M20.41 Other hammer toe(s) (acquired), right foot; M20.42 Other hammer toe(s) (acquired), left foot; Z91.81 History of falling; Z96.642 Presence of left artificial hip joint; F10.20 Alcohol dependence, uncomplicated; R53.1 Weakness; Z88.8 Allergy status to other drugs, medicaments and biological substances
CPT/HCPCS: 36415; 70030-TC; 70450; 73020; 74018; 83735; 84100; 84300; 84443; 84550; 85025; 86592; 95819; A4663; J2405

== ENCOUNTER 2020-07-09 13:46 | Inpatient (IN) | payer MEDICARE, OTHER ==
[~2020-07-09] VITALS: Ht 175.3 cm; Wt 81.6 kg
[~2020-07-09 13:46] MED LIST: AMLO5TAB4 PO; ASCO-310 PO; ASCO-375 PO; ATOR40TA PO; DOCU-141 PO; MULT-1077 PO; QUET100T PO; SERT50TA PO; THIA100P12 PO; ZINC1CAP2 PO
--- NOTE | 2020-07-09 14:10 | NUR ---
Dr Leon at the bedside for MSE.
[2020-07-09] MEDS ORDERED: MIRT15TA7 PO (14:21)
[2020-07-09 14:31] LABS: BASOPHILS % (AUTO) 0.5 % (0.0-2.0); EOSINOPHILS # (AUTO) 0.6 K/uL (0.0-0.7); EOSINOPHILS % (AUTO) 9.5 % (0.0-7.0); HEMATOCRIT 35.4 % (36.7-47.1); HEMOGLOBIN 11.8 g/dL (12.5-16.3); LYMPHOCYTES # (AUTO) 1.5 K/uL (20.0-40.0); LYMPHOCYTES % (AUTO) 25.3 % (20.5-51.5); MEAN CORPUSCULAR HEMOGLOBIN 29.9 uug (23.8-33.4); MEAN CORPUSCULAR HGB CONC 33 g/dL (32.5-36.3); MONOCYTES # (AUTO) 0.8 K/uL (2.0-10.0); MONOCYTES % (AUTO) 13.4 % (0.0-11.0); NEUTROPHILS # (AUTO) 3.1 K/uL (1.8-8.9); NEUTROPHILS % (AUTO) 51.3 % (38.5-71.5); PLATELET COUNT (AUTO) 230 K/uL (152-348); RED BLOOD CELL COUNT(AUTO) 3.94 MIL/uL (4.06-5.63); WHITE BLOOD COUNT (AUTO) 6.1 K/uL (3.6-10.2)
[2020-07-09 14:37] LABS: CARBON DIOXIDE 28 mmol/L (21-32); CHLORIDE 107 mmol/L (98-107); CREATININE 0.8 mg/dL (0.6-1.3); GLUCOSE 99 mg/dL (74-106); POTASSIUM 3.4 mmol/L (3.5-5.1); UREA NITROGEN, BLOOD 11 mg/dL (7-18)
[2020-07-09 14:38] LABS: ETHANOL < 3 MG/DL (0-0)
[2020-07-09 14:43] LABS: ALANINE AMINOTRANSFERASE 17 U/L (16-63); ALKALINE PHOSPHATASE 59 U/L (50-136); ASPARTATE AMINOTRANSFERASE 12 U/L (15-37); BILIRUBIN,DIRECT 0.1 mg/dL (0.0-0.2); BILIRUBIN,TOTAL 0.4 mg/dL (0.2-1.0); TOTAL PROTEIN, SERUM 7.5 g/dL (6.4-8.2)
[2020-07-09 14:47] LABS: ACETAMINOPHEN < 2.0 ug/mL (10-30)
[2020-07-09 14:51] LABS: THYROID STIMULATING HORMONE 3.959 mIU/mL (0.358-3.740)
--- NOTE | 2020-07-09 15:03 | NUR ---
Patient is resting comfortably in bed with eyes closed, easily arousable,NAD noted.
--- NOTE | 2020-07-09 15:04 | NUR ---
Pt is medically cleared by Dr Leon.
--- NOTE | 2020-07-09 15:21 | NUR ---
Suhail Mckeon LCSW from PET at the bedside for psych eval.
[2020-07-09] MEDS ORDERED: POTASSIUM BICARBONATE/CIT AC 25 MEQ TABLET.EFF PO ONE (16:00)
[2020-07-09] MEDS ORDERED: POTASSIUM BICARBONATE/CIT AC 25 MEQ TABLET.EFF ONE (16:02)
--- NOTE | 2020-07-09 17:34 | NUR ---
Attempted to collect urine w/ urinal, pt urinated on matress accedently.
--- NOTE | 2020-07-09 18:19 | NUR ---
Dinner tray provided, Pt ate 100%, w/ good appetite.
--- NOTE | 2020-07-09 19:18 | NUR ---
Transfered to MHU via wheelchair with no distress noted.
[2020-07-09 19:25] VITALS: BP 127/71
--- NOTE | 2020-07-09 19:40 | NUR ---
GPS ADMISSION NOTE: Patient is a 64 year old male, brought in to the hospital from [facility] on a 5150 for DTS and GD , via ambulance. Patient arrived to the Mental Health unit by wheelchair. Per the hold, patient ran out of [facility], where he was living, in an AWOL attempt and fell down. Hold also states that patient has been noncompliant with his care. Upon face to face evaluation this patient is oriented to self only and is unable to verbalize why he is here. Patient is unkept and incontinent of urine at times. His judgement is impaired as evidenced by him urinating in a small cup at the bedside. Interviewing patient was difficult because patient is a poor historian but was able to express he needs a drink of "Vodka" and that he drinks daily. Basketball Coach oriented patient to environment several times and put safety measures in place d/t patient has an unsteady gait. Patients Rights Handbook and Advisement were provided. VS are stable and DR Garcia, and Dr. Sadler were called for orders. Continuing to monitor for safety, Awol risk , and any behavioral issues. No acute distress noted at this time.
[2020-07-09] MEDS ORDERED: MAG HYDROX/AL HYDROX/SIMETH 30 ML LIQUID UDC PO PRN (21:00)
[2020-07-09] MEDS ORDERED: MAGNESIUM HYDROXIDE 30 ML LIQUID UDC PO PRN (21:00)
[2020-07-09] MEDS: ZOLPIDEM 5 MG TABLET PO PRN (22:54)
[2020-07-10] MEDS: ACETAMINOPHEN 325 MG TABLET PO PRN (00:51)
[2020-07-10] MEDS: LORAZEPAM 0.5 MG TABLET PO PRN (00:51)
[2020-07-10 02:50] LABS: *BILIRUBIN,URIN NEGATIVE (NEGATIVE); *BLOOD, URINE NEGATIVE (NEGATIVE); *CLARITY,URINE CLEAR (CLEAR); *COLOR,URINE LIGHT YELLOW (YELLOW); *KETONES,URINE NEGATIVE (NEGATIVE); *UROBILINOGEN,URINE 0.2 E.U./dl (NORMAL); LEUKOCYTE ESTERASE ,URINE NEGATIVE (NEGATIVE); NITRITE, URINE NEGATIVE (NEGATIVE); PH,URINE 7.5 (5.0-8.0); UGLUCOSE NEGATIVE (NEGATIVE)
[2020-07-10 02:56] LABS: *AMPHETAMINE, URINE NEGATIVE (NEGATIVE); *CANNABINOID, URINE NEGATIVE (NEGATIVE); *COCCAINE, URINE NEGATIVE (NEGATIVE); *OPIATE, URINE NEGATIVE (NEGATIVE); *PHENCYCLIDINE SCREEN,URINE NEGATIVE (NEGATIVE)
--- NOTE | 2020-07-10 05:44 | NUR ---
Patient confused all night. Prn medications given with little to no effect. Total sleep 2 hours. Patient was up out of bed to void frequently. UA sent and came back negative. Constant reorientation provided for this patient along with safety strategies d/t the patient has had recent falls and has an unsteady gait. A few times during the shift patient would ask insurance underwriter sales for some " Vodka". At one point patient believed he was on an airplane. Continuing to monitor for safety , assess and provide for needs. No acute distress at this time.
[2020-07-10 07:30] VITALS: BP 135/73
[2020-07-10] MEDS: AMLODIPINE 5 MG TABLET PO SCH (08:10)
--- NOTE | 2020-07-10 08:32 | NUR ---
Firearms Report: Deputy Juvenile Officer completed and submitted a [employer] firearms report for 5150 grave disability certification. A copy of report has been placed in patient chart.
[2020-07-10 09:23] LABS: IRON, SERUM 59 ug/dL (50-175)
[2020-07-10 09:37] LABS: FERRITIN 269 ng/mL (26-388)
--- NOTE | 2020-07-10 09:55 | NUR ---
SW Family Contact: his handbook writer spoke with pt's son Bridger ([phone]) to gather collateral. Bridger is involved in pt's care. Per Bridger, he stated he would want pt to look into other facilities, however, he stated if no other facility will take him then he can return back to [facility].
--- NOTE | 2020-07-10 09:55 | NUR ---
LAN Initial Discharge Note: Patient currently resides [facility] [address] [place] [address]; ([phone]). This blurb writer spoke with pt's son Bridger ([phone]) to gather collateral. Bridger is involved in pt's care. Per Bridger, he stated he would want pt to look into other facilities, however, he stated if no other facility will take him then he can return back to [facility]. This blurb writer contacted [facility] ([phone]) requesting to speak to an admin, however, this blurb writer left a voicemail. LAN will work with the MD, treatment team, and family to help coordinate discharge.
--- NOTE | 2020-07-10 10:01 | NUR ---
SW Substance Abuse Intervention: Patient was provided with a brief substance abuse intervention and provided resources: [facility] ([phone]), [facility] ([phone]), and [facility] ([phone]).
--- NOTE | 2020-07-10 10:09 | NUR ---
LAN Facility Contact: This underwriter mortgage loan spoke with Walter schaffer from [facility] ([phone]) stated pt is welcomed back upon dc.
[2020-07-10] MEDS: ESCITALOPRAM OXALATE 10 MG TABLET PO SCH (13:48)
[2020-07-10 15:05] VITALS: BP 153/78
[2020-07-10 19:56] VITALS: BP 151/77
[2020-07-10] MEDS ORDERED: QUETIAPINE FUMARATE 100 MG TABLET PO SCH (21:00)
[2020-07-10] MEDS: ATORVASTATIN 40 MG TABLET PO SCH (21:20)
[2020-07-10] MEDS: ZOLPIDEM 5 MG TABLET PO PRN (21:41)
[2020-07-11] MEDS: LORAZEPAM 0.5 MG TABLET PO PRN ×2 (01:03→08:24)
[2020-07-11 07:30] VITALS: BP 140/83
[2020-07-11] MEDS: AMLODIPINE 5 MG TABLET PO SCH (08:24)
[2020-07-11] MEDS: ESCITALOPRAM OXALATE 10 MG TABLET PO SCH (08:25)
[2020-07-11 15:35] VITALS: BP 150/61
[2020-07-11 20:00] VITALS: BP 112/77
[2020-07-11] MEDS: ATORVASTATIN 40 MG TABLET PO SCH (20:34)
[2020-07-11] MEDS: QUETIAPINE FUMARATE 100 MG TABLET PO SCH (20:34)
[2020-07-12] MEDS: LORAZEPAM 0.5 MG TABLET PO PRN ×4 (03:17→20:55)
--- NOTE | 2020-07-12 05:07 | NUR ---
Received patient last night , wondering around looking for his room. Despite the fact their is a sign on the door, he still gets lost. Patient is very confused and forgetful. Unaware of where he is and what is going on. Marine Engineer Cpvec constantly was redirecting and reorienting patient. PM Seroquel given and patient slept a few hours, but got up at 3am and has not gone back to sleep. Patient again ,asked service writer for some "Vodka" or "Some kind of nightcap". Monitoring patient for safety, behavior escalation and continuing to reorient. No acute distress at this time.
[2020-07-12 07:30] VITALS: BP 114/64
[2020-07-12] MEDS: ACETAMINOPHEN 325 MG TABLET PO PRN (07:55)
[2020-07-12] MEDS: AMLODIPINE 5 MG TABLET PO SCH (08:00)
[2020-07-12] MEDS: ESCITALOPRAM OXALATE 10 MG TABLET PO SCH (08:01)
[2020-07-12 17:20] VITALS: BP 122/48
--- NOTE | 2020-07-12 18:50 | NUR ---
Left pt. in bed resting comfortable, during shift with displays of some restlessness, but easily reoriented. Compliant with nursing care.
[2020-07-12 20:00] VITALS: BP 123/72
[2020-07-12] MEDS: QUETIAPINE FUMARATE 100 MG TABLET PO SCH (20:01)
[2020-07-12] MEDS: ATORVASTATIN 40 MG TABLET PO SCH (20:01)
[2020-07-12] MEDS: ZOLPIDEM 5 MG TABLET PO PRN (22:05)
[2020-07-13 07:30] VITALS: BP 96/70
[2020-07-13] MEDS: ESCITALOPRAM OXALATE 10 MG TABLET PO SCH (08:38)
[2020-07-13] MEDS: AMLODIPINE 5 MG TABLET PO SCH (08:39)
[2020-07-13] MEDS: LORAZEPAM 0.5 MG TABLET PO PRN ×2 (13:35→20:13)
[2020-07-13] MEDS: ACETAMINOPHEN 325 MG TABLET PO PRN (13:35)
[2020-07-13 15:03] VITALS: BP 128/76
--- NOTE | 2020-07-13 15:16 | NUR ---
Family Contact: Pt's son Bridger ([phone]) called the SW to discuss placement and even informed her that he is working with two placement agencies. As the conversation progressed he stated that he will call the SW the following day to see if he wants to have the SW send a referral to [facility]. SW informed him that she will assist him in any way that he needs.
[2020-07-13] MEDS: DIVALPROEX 500 MG TABLET.DR PO SCH (20:12)
[2020-07-13] MEDS: ATORVASTATIN 40 MG TABLET PO SCH (20:12)
[2020-07-13] MEDS ORDERED: QUETIAPINE FUMARATE 100 MG TABLET PO SCH (21:00)
[2020-07-13 21:04] VITALS: BP 141/75
[2020-07-13] MEDS: ZOLPIDEM 5 MG TABLET PO PRN (22:13)
--- NOTE | 2020-07-13 23:32 | NUR ---
RECEIVED PATIENT PACING THE HALLWAY AND WANDERING INTI OTHER PATIENT'S ROOMS.HAD TO BE RE-DIRECTED AND ORIENTED SEVERAL TIMES. HE IS CONFUSED , DISORIENTED, AND EASILY FORGETFUL. WHEN ASKED WHO THE PRESIDENT WAS HE SAID"DOCTOR NO GOOD".ADMITTED TO HEARING VOICES WHICH SAY TO HIM. 'SHUT UP BERNARD. THIS IS NOT YOUR PROBLEM.' HE SEEMS INTERNALLY PRE OCCUPIED.SAFETY PROTOCOLS IN PLACE. VISUAL CHECKS MADE ON HIM.WILL CONTINUE TO MONITOR.
[2020-07-14] MEDS: LORAZEPAM 0.5 MG TABLET PO PRN ×2 (01:30→08:26)
[2020-07-14] MEDS: ACETAMINOPHEN 325 MG TABLET PO PRN ×4 (01:30→20:18)
--- NOTE | 2020-07-14 06:47 | NUR ---
PATIENT DID NOT SLEEP A WINK TONIGHT. 0 HOURS OF SLEEP. HE WAS GIVEN ATIVAN AT 20:15,AMBIEN 22:20 AND ANOTHER ATIVAN AT 01:30. HE IS IN THE FRANKO CHAIR IN FRONT OF NURSES STATION. HE HAD A SHOWER.
[2020-07-14 07:30] VITALS: BP 118/56
[2020-07-14] MEDS: DIVALPROEX 500 MG TABLET.DR PO SCH ×2 (08:25→20:18)
[2020-07-14] MEDS: AMLODIPINE 5 MG TABLET PO SCH (08:26)
[2020-07-14] MEDS: risperiDONE 1 MG TABLET PO SCH ×4 (09:42→16:11)
--- NOTE | 2020-07-14 15:01 | NUR ---
Probable Cause Hearing: Probable cause was upheld for pts [id number] hold for grave disability.
[2020-07-14] MEDS: LORAZEPAM 1 MG TABLET PO PRN (15:53)
[2020-07-14 16:00] VITALS: BP 109/47
[2020-07-14 20:07] VITALS: BP 105/59
[2020-07-14] MEDS: TRAZODONE 100 MG TABLET PO SCH (20:19)
[2020-07-14] MEDS: HYDROCORTISONE 1% CREAM 30 GM TUBE TP SCH (20:19)
[2020-07-14] MEDS: ATORVASTATIN 40 MG TABLET PO SCH (20:19)
[2020-07-14] MEDS ORDERED: TRAZODONE 100 MG TABLET PO SCH (21:00)
[2020-07-14] MEDS: ZOLPIDEM 5 MG TABLET PO PRN (22:01)
--- NOTE | 2020-07-15 05:03 | NUR ---
Patient in lesley chair at the beginning of the shift. When out of the chair, he begun wondering around the unit totally lost, despite his room sign. Many attempts at redirection were unsuccessful d/t his forgetfulness. Youth Development Professional provided patient with some snacks and PRN medication, then ambulated with patient around the unit a couple of times. After that patient was taken to his bed and fell asleep right away. Bed alarm on and the patient is being monitored for safety. The patient is still asleep at this time. No distress noted.
[2020-07-15 07:30] VITALS: BP_SYST 107; BP_SYST 115; BP_DIAS 63; BP_DIAS 66
[2020-07-15] MEDS: FOLIC ACID 1 MG TABLET PO SCH (08:04)
[2020-07-15] MEDS: DIVALPROEX 500 MG TABLET.DR PO SCH ×2 (08:04→20:13)
[2020-07-15] MEDS: risperiDONE 1 MG TABLET PO SCH ×3 (08:04→17:25)
[2020-07-15] MEDS: AMLODIPINE 5 MG TABLET PO SCH (08:05)
[2020-07-15] MEDS: THIAMINE HCL 100 MG TABLET PO SCH (08:05)
[2020-07-15] MEDS: HYDROCORTISONE 1% CREAM 30 GM TUBE TP SCH ×2 (08:06→20:15)
[2020-07-15] MEDS: ACETAMINOPHEN 325 MG TABLET PO PRN ×2 (11:29→17:52)
[2020-07-15] MEDS: LORAZEPAM 1 MG TABLET PO PRN (11:30)
--- NOTE | 2020-07-15 15:28 | NUR ---
Family Contact: LAN called the pt's son Bridger ([phone]) and asked him about placement for the pt. He stated that if [facility] would be a temporary placement then he would accept it as the discharge plan from the hospital. LAN stated that she will send a referral.
--- NOTE | 2020-07-15 15:37 | NUR ---
SNF Referral: LAN faxed a referral to [facility] with attn to Patti to the fax number: [phone].
[2020-07-15 16:00] VITALS: BP 107/63
--- NOTE | 2020-07-15 16:48 | NUR ---
Pt received in lesley-chair, assessed, able to make needs known, although confused. Pt is able to agree to CFS. Pt denies SI/HI, AH/VH. Pt is able to ambulate steadily although he does tend to wonder up the halls and occasionally into the wrong rooms. Pt assisted back to lesley-chair for meals. Pt cooperative with care provided and compliant with medications as offered. Pt became agitated, showing signs of anxiety , PRN medication administered as ordered. Pt reported tenderness and pain to left shoulder, Tylenol administered per PRN orders. All comfort and safety measures implemented. Will continue to monitor Pt for safety.
[2020-07-15] MEDS: TRAZODONE 100 MG TABLET PO SCH (20:13)
[2020-07-15] MEDS: ATORVASTATIN 40 MG TABLET PO SCH (20:14)
[2020-07-15 20:18] VITALS: BP 103/74
[2020-07-15] MEDS: ZOLPIDEM 5 MG TABLET PO PRN (21:26)
--- NOTE | 2020-07-15 22:24 | NUR ---
Patient received in lesley-chair, assessed, able to make needs known, although confused. Pt denies SI/HI, AH/VH. Pt is able to ambulate steadily although he does tend to wonder up the halls and occasionally into the wrong rooms. Pt cooperative with care provided and compliant with medications as offered. All comfort and safety measures implemented. Will continue to monitor Pt for safety.
[2020-07-16 07:30] VITALS: BP 136/77
[2020-07-16] MEDS: DIVALPROEX 500 MG TABLET.DR PO SCH ×2 (08:13→20:05)
[2020-07-16] MEDS: THIAMINE HCL 100 MG TABLET PO SCH (08:13)
[2020-07-16] MEDS: AMLODIPINE 5 MG TABLET PO SCH (08:13)
[2020-07-16] MEDS: risperiDONE 1 MG TABLET PO SCH ×3 (08:13→16:49)
[2020-07-16] MEDS: FOLIC ACID 1 MG TABLET PO SCH (08:13)
[2020-07-16] MEDS: HYDROCORTISONE 1% CREAM 30 GM TUBE TP SCH ×2 (08:15→20:08)
--- NOTE | 2020-07-16 11:08 | NUR ---
Gps/Consignee- Kept up on the lesley-chair, patient continue to wander around , going room to room, constantly needing redirections, Compliant with his am medications, monitoring safety
[2020-07-16 16:00] VITALS: BP 109/69
[2020-07-16 20:00] VITALS: BP 111/67
[2020-07-16] MEDS: ATORVASTATIN 40 MG TABLET PO SCH (20:05)
[2020-07-16] MEDS: TRAZODONE 100 MG TABLET PO SCH (20:05)
[2020-07-16] MEDS: ZOLPIDEM 5 MG TABLET PO PRN (22:15)
[2020-07-17] MEDS: LORAZEPAM 1 MG TABLET PO PRN (00:23)
[2020-07-17 07:30] VITALS: BP 146/87
[2020-07-17] MEDS: DIVALPROEX 500 MG TABLET.DR PO SCH ×2 (09:55→20:18)
[2020-07-17] MEDS: FOLIC ACID 1 MG TABLET PO SCH (09:56)
[2020-07-17] MEDS: AMLODIPINE 5 MG TABLET PO SCH (09:56)
[2020-07-17] MEDS: THIAMINE HCL 100 MG TABLET PO SCH (09:56)
[2020-07-17] MEDS: risperiDONE 1 MG TABLET PO SCH ×3 (09:57→16:47)
[2020-07-17] MEDS: HYDROCORTISONE 1% CREAM 30 GM TUBE TP SCH ×2 (09:57→20:19)
--- NOTE | 2020-07-17 12:27 | NUR ---
Family Contact: SW called the pt's son Bridger ([phone]) and informed him that the pt was accepted to [facility] and stated that the SW does not have a discharge date as of right now. SW stated that the pt will have a mental health social worker at the facility to assist with a discharge to an assisted living and stated that they will work with the pts son in terms of visitation.
[2020-07-17 16:00] VITALS: BP 127/77
[2020-07-17 20:18] VITALS: BP 130/81
[2020-07-17] MEDS: TRAZODONE 100 MG TABLET PO SCH (20:19)
[2020-07-17] MEDS: ATORVASTATIN 40 MG TABLET PO SCH (20:19)
--- NOTE | 2020-07-18 06:47 | NUR ---
GPS: REMAIN CALM AND COOPERATIVE WITH MEDS AND CARE. SLEPT 9 HRS THROUGH THE NIGHT. ASSISTED WITH ADL'S. RESTING IN HIS BED COMFORTABLY. CONTINUE PLAN OF CARE.
[2020-07-18 07:30] VITALS: BP 100/79
[2020-07-18] MEDS: risperiDONE 1 MG TABLET PO SCH ×3 (08:33→16:07)
[2020-07-18] MEDS: FOLIC ACID 1 MG TABLET PO SCH (08:33)
[2020-07-18] MEDS: DIVALPROEX 500 MG TABLET.DR PO SCH ×2 (08:33→20:11)
[2020-07-18] MEDS: THIAMINE HCL 100 MG TABLET PO SCH (08:33)
[2020-07-18] MEDS: AMLODIPINE 5 MG TABLET PO SCH (08:33)
[2020-07-18] MEDS: HYDROCORTISONE 1% CREAM 30 GM TUBE TP SCH ×2 (08:37→20:12)
[2020-07-18 16:31] VITALS: BP 126/62
[2020-07-18 20:04] VITALS: BP 133/81
[2020-07-18] MEDS: TRAZODONE 100 MG TABLET PO SCH (20:11)
[2020-07-18] MEDS: ATORVASTATIN 40 MG TABLET PO SCH (20:11)
--- NOTE | 2020-07-19 05:40 | NUR ---
GPS: REMAIN CALM AND COOPERATIVE WITH MEDS AND CARE. ASSISTED WITH ADL'S. NO AGITATION NOTED. RESTING IN FRANKO CHAIR NEAR NURSES STATION COMFORTABLY. PLEASANT UPON APPROACH. CONTINUE MONITORING FOR SAFETY.CONTINUE PLAN OF CARE.
--- NOTE | 2020-07-19 06:45 | NUR ---
slept 10 hrs through the night.
[2020-07-19 07:50] VITALS: BP 124/71
[2020-07-19] MEDS: risperiDONE 1 MG TABLET PO SCH ×3 (08:14→16:35)
[2020-07-19] MEDS: DIVALPROEX 500 MG TABLET.DR PO SCH ×2 (08:14→20:49)
[2020-07-19] MEDS: ACETAMINOPHEN 325 MG TABLET PO PRN (08:14)
[2020-07-19] MEDS: HYDROCORTISONE 1% CREAM 30 GM TUBE TP SCH ×2 (08:14→21:49)
[2020-07-19] MEDS: FOLIC ACID 1 MG TABLET PO SCH (08:14)
[2020-07-19] MEDS: THIAMINE HCL 100 MG TABLET PO SCH (08:14)
[2020-07-19] MEDS: AMLODIPINE 5 MG TABLET PO SCH (08:15)
[2020-07-19 16:25] VITALS: BP 124/97
[2020-07-19 20:19] VITALS: BP 126/74
[2020-07-19] MEDS: ATORVASTATIN 40 MG TABLET PO SCH (20:49)
[2020-07-19] MEDS: TRAZODONE 100 MG TABLET PO SCH (20:49)
--- NOTE | 2020-07-20 06:31 | NUR ---
Patient was up at 3:00 am, confused and soaking wet from urine. Patient is oriented to self only. Total sleep was 6.30 hours. Continuing to monitor for safety and reorient patient whenever possible.
[2020-07-20 07:30] VITALS: BP 129/70
[2020-07-20] MEDS: ACETAMINOPHEN 325 MG TABLET PO PRN ×2 (08:11→16:22)
[2020-07-20] MEDS: FOLIC ACID 1 MG TABLET PO SCH (08:11)
[2020-07-20] MEDS: THIAMINE HCL 100 MG TABLET PO SCH (08:11)
[2020-07-20] MEDS: risperiDONE 1 MG TABLET PO SCH ×3 (08:11→16:22)
[2020-07-20] MEDS: DIVALPROEX 500 MG TABLET.DR PO SCH ×2 (08:11→20:16)
[2020-07-20] MEDS: AMLODIPINE 5 MG TABLET PO SCH (08:12)
[2020-07-20] MEDS: HYDROCORTISONE 1% CREAM 30 GM TUBE TP SCH ×2 (08:14→20:19)
--- NOTE | 2020-07-20 09:40 | NUR ---
LAN Family Contact: LAN called the pt's son Bridger ([phone]) and discussed pt's discharge. Pt will be discharge 07/21 and son is agreeable.
[2020-07-20 16:00] VITALS: BP 148/82
[2020-07-20] MEDS: TRAZODONE 100 MG TABLET PO SCH (20:16)
[2020-07-20] MEDS: ATORVASTATIN 40 MG TABLET PO SCH (20:16)
[2020-07-20 20:19] VITALS: BP 128/69
[2020-07-20] MEDS: ZOLPIDEM 5 MG TABLET PO PRN (23:42)
--- NOTE | 2020-07-21 02:11 | NUR ---
RECEIVED PATIENT IN FRANKO CHAIR. ABLE TO MAKE NEEDS KNOWN BUT CONFUSED AND EASILY FORGETFUL. HE DENIES SI/HI,AH,VH. HE IS COOPERATIVE WITH HIS CARE AND COMPLIANT WITH HIS MEDICATION. WAS UNABLE TO SLEEP AND AFTER ASSESSMENT WAS GIVEN ZOLPIDEM 5MG PRN WITH FAIRLY GOOD EFFECT. VISUAL CHECKS MADE ON HIM AND SAFETY PROTOCOLS PUT IN PLACE.WILL CONTINUE TO MONITOR.
--- NOTE | 2020-07-21 06:41 | NUR ---
SLEPT FOR 4:30 HOURS.
[2020-07-21 07:30] VITALS: BP 127/79
--- NOTE | 2020-07-21 08:12 | NUR ---
SW Discharge Note: Patient will be discharged to a locked residential facility to [address] [address]; ([phone]) via ambulance transportation at 12:00PM. Patients subha Sparks ([phone]) is aware and agreeable with discharge plans Corporate Pilot spoke with Patti, Credit Processor at [facility]; ([phone]), who stated patient will be accepted at facility today. Patient is alert and oriented x1-2, and is not able to plan for self-care at this time, but is willing to accept care provided for her at the facility. Patient denies any suicidal or homicidal ideations. Patient is aware and agreeable with discharge plans.. Patient will continue to follow-up with her Psychiatrist Dr. Garcia and Disc Ruler Operator Dr. Mcdaniel at [address] [address]; ([phone]). Patient presents with euthymic mood and congruent affect.
[2020-07-21 08:20] VITALS: BP 127/79
[2020-07-21] MEDS: risperiDONE 1 MG TABLET PO SCH ×2 (08:20→12:33)
[2020-07-21] MEDS: DIVALPROEX 500 MG TABLET.DR PO SCH (08:20)
[2020-07-21] MEDS: AMLODIPINE 5 MG TABLET PO SCH (08:20)
[2020-07-21] MEDS: FOLIC ACID 1 MG TABLET PO SCH (08:20)
[2020-07-21] MEDS: HYDROCORTISONE 1% CREAM 30 GM TUBE TP SCH (08:21)
[2020-07-21] MEDS: THIAMINE HCL 100 MG TABLET PO SCH (08:21)
--- NOTE | 2020-07-21 09:00 | NUR ---
D/C PLANNING PATIENT WILL BE DISCHARGED TO [facility] AT 1430 PATIENT AWARE BUT IS CONFUSED.
--- NOTE | 2020-07-21 13:09 | NUR ---
CALLED [facility] SPOKE WITH DOMINIC AND REPORT GIVEN TO HER FOR CONTINUING CARE PATIENT WILL BE PICKED UP BY THE AMBULANCE HERE AT 1430.
--- NOTE | 2020-07-21 15:05 | NUR ---
PATIENT DISCHARGED PICKED UP BY THE AMBULANCE TO [facility] IN SATISFACTORY CONDITION WITH DISCHARGE INSTRUCTIONS GIVEN TO THE AMBULANCE TECHS AND ALL HIS PERSONAL BELONGINGS.
== END 2020-07-21 15:05 | DRG 885 ==
LOC: ER 13:46 → GPS 19:11
PROVIDERS: ADMIT Psychiatry & Neurology Psychiatry; ATTEND Family Medicine
DX: F33.3 Major depressive disorder, recurrent, severe with psychotic symptoms (principal); E44.0 Moderate protein-calorie malnutrition; F03.91 Unspecified dementia, unspecified severity, with behavioral disturbance; F10.27 Alcohol dependence with alcohol-induced persisting dementia; G40.909 Epilepsy, unspecified, not intractable, without status epilepticus; Y90.0 Blood alcohol level of less than 20 mg/100 ml; E03.9 Hypothyroidism, unspecified; E78.5 Hyperlipidemia, unspecified; I10 Essential (primary) hypertension; Z86.73 Personal history of transient ischemic attack (TIA), and cerebral infarction without residual deficits; Z73.6 Limitation of activities due to disability; D63.8 Anemia in other chronic diseases classified elsewhere; E88.09 Other disorders of plasma-protein metabolism, not elsewhere classified; Z68.26 Body mass index [BMI] 26.0-26.9, adult; Z91.81 History of falling
CPT/HCPCS: 36415; 70030-TC; 70450; 71045; 73030; 73110; 80164; 83550; 84443; 85025; 85730; 87086; 93005; A4663; G0480

== ENCOUNTER 2020-07-21 17:10 | Emergency (ER) | payer MEDICARE, OTHER ==
[~2020-07-21] VITALS: Ht 180.3 cm; Wt 86.2 kg
[~2020-07-21 17:10] MED LIST changes: +MIRT15TA7 PO
--- NOTE | 2020-07-21 17:38 | NUR ---
Patient was seen by MD. He is awake and alert.
[2020-07-21] MEDS ORDERED: ACETAMINOPHEN ES 500 MG TABLET PO ONE (17:45)
[2020-07-21] MEDS ORDERED: ACETAMINOPHEN ES 500 MG TABLET ONE (17:59)
--- NOTE | 2020-07-21 19:00 | NUR ---
patient is discharged from ER per MD orders. I called [place] ambulance that brought him here from [facility]. They will take him back around 2100. He is sitting up eating dinner with no complaints. Hand off report given to Bao.
--- NOTE | 2020-07-21 19:09 | NUR ---
Assumed care for patient at this time. Pt is eating dinner, no signs of distress. Sling applied by Zoraida VEGA on L arm. Pt tolerated well.
--- NOTE | 2020-07-21 19:55 | NUR ---
Patient discharged to [facility] in stable condition. Report given to EMT, per AM nurse, facility made aware. Written and verbal after care instructions given. Patient verbalizes understanding of instructions. Stressed follow up with PCP or return to ER for worsening s/s. Left in stable condition via gurangel, sling in place.
[2020-07-21 20:17] VITALS: BP 140/70
== END 2020-07-21 20:18 ==
LOC: ER 17:10
DX: S52.122A Displaced fracture of head of left radius, initial encounter for closed fracture (principal); W19.XXXA Unspecified fall, initial encounter; Y92.89 Other specified places as the place of occurrence of the external cause; G40.909 Epilepsy, unspecified, not intractable, without status epilepticus; F10.20 Alcohol dependence, uncomplicated; F20.9 Schizophrenia, unspecified; E78.5 Hyperlipidemia, unspecified; Z79.899 Other long term (current) drug therapy; R03.0 Elevated blood-pressure reading, without diagnosis of hypertension
CPT/HCPCS: 73030; 73060; 73080; A4663; A9150